=== PATIENT | female | born 1970 | race Caucasian/White ===

== ENCOUNTER → 2016-09-21 | Outpatient (CLI) | payer BC | LOC: BHSO 10:40 | DX: F31.81 Bipolar II disorder (principal) ==

== ENCOUNTER → 2016-12-23 | Outpatient (CLI) | payer BC | LOC: BHSO 10:40 | DX: F31.81 Bipolar II disorder (principal) ==

== ENCOUNTER → 2017-03-24 | Outpatient (CLI) | payer BC | LOC: BHSO 10:41 | DX: F31.81 Bipolar II disorder (principal) ==

== ENCOUNTER → 2017-10-04 | Outpatient (CLI) | payer BC | LOC: BHSO 10:07 | DX: F31.81 Bipolar II disorder (principal) | CPT/HCPCS: G0463 ==

== ENCOUNTER → 2018-03-14 | Outpatient (CLI) | payer BC | LOC: BHSO 13:40 | DX: F31.81 Bipolar II disorder (principal) | CPT/HCPCS: G0463 ==

== ENCOUNTER → 2018-08-15 | Outpatient (CLI) | payer BC | LOC: BHSO 13:19 | DX: F41.1 Generalized anxiety disorder (principal) | CPT/HCPCS: G0463 ==

== ENCOUNTER → 2019-01-31 | Outpatient (CLI) | payer BC | LOC: BHSO 14:20 | DX: F41.1 Generalized anxiety disorder (principal) | CPT/HCPCS: G0463 ==

== ENCOUNTER → 2019-05-10 | Outpatient (CLI) | payer BC | LOC: BHSO 13:38 | DX: F31.81 Bipolar II disorder (principal) | CPT/HCPCS: G0463 ==

== ENCOUNTER → 2019-07-14 | Outpatient (CLI) | payer BC | LOC: BHSO 15:45 | DX: F31.81 Bipolar II disorder (principal) | CPT/HCPCS: G0463 ==

== ENCOUNTER → 2019-09-27 | Outpatient (CLI) | payer BC | LOC: BHSO 14:52 | DX: F31.81 Bipolar II disorder (principal) | CPT/HCPCS: G0463 ==